=== PATIENT | male | born 1985 | race Two or more races ===

== ENCOUNTER 2019-11-26 07:51 | Emergency (ER) | payer OTHER ==
[2019-11-26 07:56] VITALS: BP 117/70; PULSE 81; TEMP 98.1; BMI 25.0
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
== END 2019-11-26 09:24 | disposition home or self-care (01) ==
LOC: JER 07:51
DX: G44.319 Acute post-traumatic headache, not intractable (principal); Y04.2XXA Assault by strike against or bumped into by another person, initial encounter; Y93.89 Activity, other specified; Y92.038 Other place in apartment as the place of occurrence of the external cause; Y99.8 Other external cause status; Z59.2 Discord with neighbors, lodgers and landlord; Y07.59 Other non-family member, perpetrator of maltreatment and neglect
CPT/HCPCS: 70450-TC; 99282-25